=== PATIENT | female | born 1990 | race Asian ===

== ENCOUNTER 2020-03-14 18:59 | Emergency (ER) | payer BC ==
[~2020-03-14] VITALS: Ht 157.5 cm; Wt 52.2 kg
[2020-03-14 19:18] VITALS: BP 119/84
--- NOTE | 2020-03-14 19:32 | NUR ---
LORI HOWELL AT BEDSIDE
[2020-03-14] MEDS ORDERED: TRAMADOL HCL 50 MG TABLET ONE (19:36)
--- NOTE | 2020-03-14 19:40 | NUR ---
XRAY AT BEDSIDE
[2020-03-14] MEDS ORDERED: TRAMADOL HCL 50 MG TABLET PO ONE (20:00)
--- NOTE | 2020-03-14 20:59 | NUR ---
patient is provided with prescriptions and explained not to drive due to possible cause of sedation.
--- NOTE | 2020-03-14 21:00 | NUR ---
Patient discharged to home in stable condition. Written and verbal after care instructions given. Patient verbalizes understanding of instruction.
== END 2020-03-14 21:01 | disposition home or self-care (01) ==
LOC: ER 18:59
DX: R07.81 Pleurodynia (principal)
CPT/HCPCS: 71100-TC